=== PATIENT | female | born 1975 | race Caucasian/White ===

== ENCOUNTER 2016-08-14 03:48 | Emergency (ER) | payer OTHER ==
[~2016-08-14] VITALS: Ht 172.7 cm; Wt 63.9 kg
[2016-08-14 03:58] VITALS: BP 117/66; PULSE 72; RESP 16; TEMP 98.3; O2SAT 99
[2016-08-14] MEDS ORDERED: TETANUS/DIPHTHERIA TOXOID ADULT 0.5 ML VIAL IM ONE (04:00)
[2016-08-14] MEDS ORDERED: AMOXICILLIN/CLAVULANATE K 875 MG TAB PO ONE (04:00)
[2016-08-14] MEDS ORDERED: CLINDAMYCIN INJ 600 MG in SODIUM CHLORIDE 0.9% INJ 100 ML IV ONE (04:00)
[2016-08-14] MEDS ORDERED: LIDOCAINE 1%/EPINEPHrine 1:100,000 SOLN 20 ML VIAL INFIL ONE (04:00)
[2016-08-14] MEDS ORDERED: LEVO.075 PO (04:02)
--- NOTE | 2016-08-14 05:06 | PD ---
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 The dog is up-to-date on immunizations. PFSH Past Medical History Thyroid Disease: Yes (HYPOTHYROIDISM) Tetanus Vaccination: > 5 Years Influenza Vaccination: No ?: Not LMP: 08/04/16 : 1 Para: 1 Past Surgical History Surgical History: No Previous Surgery Social History Alcohol Use: Yes ("WEEKENDS") Tobacco Use: No Substance Use: No Allergies-Medications (Allergen,Severity, Reaction): Coded Allergies: No Known Allergies (Unverified , 08/14/16) Reported Meds & Prescriptions Reported Meds & Active Scripts Active Reported Synthroid (Levothyroxine Sodium) 75 Mcg Tab 75 Mcg PO DAILY Review of Systems Except as stated in HPI: all other systems reviewed are Neg Physical Exam Narrative GENERAL: Well-nourished, well-developed patient in minimal apparent distress with her dog bite. Her vital signs are normal. SKIN: Warm and dry. There are multiple minor lacerations with a dog bite with there is a U shaped laceration, irregular that had together 5 cm in length totally. HEAD: Normocephalic. EYES: No scleral icterus. No injection or drainage. NECK: Supple, trachea midline. No JVD or lymphadenopathy. CARDIOVASCULAR: Regular rate and rhythm without murmurs, gallops, or rubs. RESPIRATORY: Breath sounds equal bilaterally. No accessory muscle use. GASTROINTESTINAL: Abdomen soft, non-tender, nondistended. MUSCULOSKELETAL: No cyanosis, or edema. BACK: Nontender without obvious deformity. No CVA tenderness. Data Data Last Documented VS Vital Signs Date Time Temp Pulse Resp B/P Pulse Ox O2 Delivery O2 Flow Rate FiO2 08/14/16 03:58 98.3 72 16 117/66 99 Orders Lidocai-Epi 1%-1:100,000 Inj (Xylocaine- (08/14/16 04:00) Clindamycin Inj (Cleocin Inj) (08/14/16 04:00) Tetanus/Diphtheria Tox Adult (Tetanus/Di (08/14/16 04:00) Amoxicil-Clavulanate (Augmentin) (08/14/16 04:00) MDM Medical Decision Making Medical Screen Exam Complete: Yes Emergency Medical Condition: Yes Medical Record Reviewed: Yes Differential Diagnosis Dog bite requiring suturing, dog bite not requiring suturing Narrative Course The patient has a dog bite that required suturing for about half of the lacerations. The patient will need to return in 5 days, Thursday, for suture removal. She will be given Augmentin and IV clindamycin here and Augmentin and Cleocin to take home. Procedures Procedure Narrative The area was prepped in Betadine. The wound was infiltrated with lidocaine. The wound was copiously irrigated with saline. The lacerations were sewn with 5 -0 nylon, 14 stitches were used. The patient tolerated the procedure fairly well. Total length of lacerations totaled 5 cm. Diagnosis Primary Impression: Dog bite of face Additional Impression: Facial laceration Additional Instructions: Return in 5 days, Thursday, for suture removal. Keep antibiotic ointment on the lacerations and try to keep them otherwise clean and dry. If you have any problems, please return to emergency department for reevaluation. Disposition: 01 DISCHARGE HOME Condition: Stable Dwight Harris MD Aug 14, 2016 05:06
== END 2016-08-14 05:22 | disposition home or self-care (01) ==
LOC: PHED 03:48
DX: S01.85XA Open bite of other part of head, initial encounter (principal); S01.81XA Laceration without foreign body of other part of head, initial encounter; W54.0XXA Bitten by dog, initial encounter; Z23 Encounter for immunization
CPT/HCPCS: 12013; 90471; 90714; 96365